=== PATIENT | female | born 1960 ===

== ENCOUNTER 2021-11-13 19:20 | Emergency (ER) | payer SELFPAY ==
--- NOTE | 2021-11-13 19:32 | Emergency Department Report ---
HPI - General Time Seen by Provider: 11/13/21 19:25 - HPI HPI: 61-year-old -[place] female presents to the emergency department via EMS in cardiac arrest. Apparently a family member was with the patient when she requested help getting down to the floor. She said that she felt hot and short of breath and then allegedly her eyes rolled in the back of her head and she went unconscious. EMS was called, but no bystander CPR was initiated. EMS arrived and found the patient to be pulseless and unresponsive. ACLS protocol was initiated. The patient was intubated and began receiving bag valve ventilation and chest compressions. A peripheral IV was established and the patient was given epinephrine and sodium bicarbonate. She had an Accu-Chek done that was about 200. Patient was in asystole throughout the majority of her EMS course but there was a very brief arrhythmia seen by EMS before she went back into asystole. They had a total of 3 episodes of ROSC but they only lasted for a few seconds and there was nothing sustainable. EMS started an epinephrine dr ip. Patient does not appear to have been to this emergency department previously. EMS says that she has a history of colon cancer. ED Review of Systems ROS: Stated complaint: CARDIAC ARREST Other details as noted in HPI Comment: Unobtainable due to pts medical conditions Physical Exam - Physical Exam Physical Exam: GENERAL: Patient is ill-appearing and unresponsive. HENT: Normocephalic. Atraumatic. EYES: Pupils are fixed and dilated. NECK: Supple. Trachea appears midline. CHEST/LUNGS: There are no spontaneous respirations. HEART/CARDIOVASCULAR: There are no spontaneous heart sounds. ABDOMEN: Abdomen is soft. There is no abdominal distention. SKIN: Skin is cool but dry. NEURO: Unresponsive. Does not withdraw to painful stimuli. Does not follow any commands. MUSCULOSKELETAL: There is no obvious deformity. There is no evidence of acute injury. No palpable femoral or radial pulses. - Procedure Description Procedures done: ACLS: I supervised ACLS for about 10 minutes. The patient arrived pulseless and apneic. She was intubated by EMS and arrived receiving chest compressions and bag valve ventilation with an epinephrine drip in place. We continued the chest compressions and bag valve ventilation immediately. Patient received a dose of epinephrine and sodium bicarbonate. On her first pulse and rhythm check the patient was in pulseless electrical activity. The patient received another dose of epinephrine, along with calcium. On the second pulse and rhythm check the patient was in asystole. The patient received a third dose of epinephrine. On the third pulse and rhythm check the patient was in pulseless electrical activity. By this time the patient has been apneic, hypoxic/anoxic for about 50 minutes. There are no spontaneous heart or breath sounds, pupils are fixed and dilated, time of was called at 1924. ED Medical Decision Making - Medical Decision Making This patient presented to the emergency department in cardiac arrest. It is unknown the exact amount of time between when the patient went unresponsive and EMS arrived, but EMS says that there course was about 30 minutes prior to arrival in the emergency department. The patient's eyes rolled back in her head and she went unresponsive. EMS found the patient pulseless and apneic. Patient was intubated and she began receiving bag valve ventilation, chest compressions. A peripheral IV was placed and the patient received epinephrine and sodium bicarbonate. In route they had 3 very short episodes of ROSC but it only lasted for a few seconds each time. The patient was placed on an epi drip. She arrived to the emergency department and was still pulseless so we continued with ACLS protocol including bag valve ventilation and chest compressions. Imme diately the patient was given a dose of epinephrine and sodium bicarbonate. On the first pulse and rhythm check the patient was in pulseless electrical activity, PEA. The patient was given another dose of epinephrine and a dose of calcium. Her second pulse and rhythm check showed her to be in asystole. Patient was given a third round of epinephrine while we continued ACLS protocol. On the third pulse and rhythm check the patient was in PEA. By this time the patient has been pulseless, apneic, and hypoxic/anoxic for about 50 minutes. There are no spontaneous heart or breath sounds, pupils are fixed and dilated. Time of was called at 1924. I spoke to the patient's son and [id number], and they were notified of the patient's expiration and then given an opportunity to see her. Critical care attestation.: If time is entered above; I have spent that time in minutes in the direct care of this critically ill patient, excluding procedure time. ED Disposition Clinical Impression: Cardiac arrest Acute respiratory failure Qualifiers: Respiratory failure complication: unspecified whether with hypoxia or hypercapnia Qualified Code(s): J96.00 - Acute respiratory failure, unspecified whether with hypoxia or hypercapnia Disposition: 20 Is pt being admited?: No Time of Disposition: 20:53
[2021-11-13] MEDS ORDERED: SODIUM BICARB 8.4% 50 MEQ/50 ML SYRINGE IV ONE (22:40)
[2021-11-13] MEDS ORDERED: EPINEPHrine 1 MG/10 ML SYRINGE ONE (22:40)
== END 2021-11-13 22:58 ==
LOC: ED 19:20
DX: I46.9 Cardiac arrest, cause unspecified (principal); J96.00 Acute respiratory failure, unspecified whether with hypoxia or hypercapnia
CPT/HCPCS: 92950; 99285; J0171; J3490